=== PATIENT | male | born 1930 | race Caucasian/White ===

== ENCOUNTER 2017-09-07 02:35 | Emergency (ER) | payer MEDICARE, BC ==
[2017-09-07] MEDS ORDERED: Ketorolac 30 MG/ML SDV ONE (03:10)
[2017-09-07] MEDS ORDERED: Ketorolac 30 MG/ML SDV IVPUSH ONE (03:10)
[2017-09-07] MEDS ORDERED: Sodium Chloride 0.9% 1,000 ML ONE (03:10)
[2017-09-07] MEDS ORDERED: Ondansetron 4 MG/2 ML SDV ONE (03:10)
[2017-09-07] MEDS ORDERED: Ketorolac 30 MG/ML SDV IM ONE (03:12)
[2017-09-07] MEDS ORDERED: Sodium Chloride 0.9% 1,000 ML IV ONE (03:12)
[2017-09-07] MEDS ORDERED: Ondansetron 4 MG/2 ML SDV IVPUSH ONE (03:12)
--- NOTE | 2017-09-07 03:19 | EDM.PDOC ---
ED HPI GENERAL MEDICAL PROBLEM - General Chief Complaint: General Stated Complaint: flank pain Time Seen by Provider: 09/07/17 03:11 Source of Information: Reports: Patient History Limitations: Reports: No Limitations - History of Present Illness INITIAL COMMENTS - FREE TEXT/NARRATIVE: PATIENT IS AN 86-YEAR-OLD GENTLEMAN WHO PRESENTS TO THE EMERGENCY DEPARTMENT THIS MORNING WITH A COMPLAINT OF RIGHT FLANK AND RIGHT LOWER QUADRANT ABDOMINAL PAIN. PATIENT STATES PAIN BEGAN AT 2230 LAST NIGHT, HAS BEEN INTERMITTENT, DESCRIBED ACHY AND THEN STABBING. PATIENT FEELS NAUSEATED DURING THESE EPISODES BUT HAS NOT VOMITED. PATIENT STATES HE DOES HAVE A HISTORY OF RENAL CALCULI. PATIENT DENIES CHEST PAIN, SHORTNESS OF BREATH, FEVER, HEADACHE, LOW BACK PAIN, FALL, BLOOD IN URINE, BOWEL CHANGES, BLOOD IN STOOL, TESTICULAR PAIN OR DYSURIA. Onset Date: 09/06/17 Onset Time: 22:30 Duration: Hour(s): Location: Reports: Abdomen, Back Quality: Reports: Ache, Stabbing Severity: Moderate Improves with: Reports: None Worsens with: Reports: None Context: Denies: Trauma Associated Symptoms: Reports: Nausea/Vomiting - Related Data Allergies Allergy/AdvReac Type Severity Reaction Status Date / Time Penicillins Allergy Swelling Verified 09/07/17 03:48 Home Meds: Home Meds Metoprolol Tartrate [Metoprolol Tartrate] 12.5 mg PO BID 09/07/17 [History] PARoxetine [Paxil] 20 mg PO DAILY 09/07/17 [History] Tamsulosin HCl [Flomax] 0.4 mg PO DAILY #14 cap.er.24h 09/07/17 [Rx] Terazosin HCl [Terazosin] 2 mg PO DAILY 09/07/17 [History] amLODIPine [Norvasc] 7.5 mg PO DAILY 09/07/17 [History] ED ROS GENERAL - Review of Systems Review Of Systems: ROS reveals no pertinent complaints other than HPI. Constitutional: Reports: No Symptoms HEENT: Reports: No Symptoms Respiratory: Reports: No Symptoms Cardiovascular: Reports: No Symptoms Endocrine: Reports: No Symptoms GI/Abdominal: Reports: Abdominal Pain, Nausea. Denies: Bloody Stool, Constipation, Diarrhea, Vomiting : Reports: Flank Pain Musculoskeletal: Reports: No Symptoms Skin: Reports: No Symptoms Neurological: Reports: No Symptoms Psychiatric: Reports: No Symptoms Hematologic/Lymphatic: Reports: No Symptoms Immunologic: Reports: No Symptoms ED EXAM, GENERAL - Physical Exam Exam: See Below Exam Limited By: No Limitations General Appearance: Alert, WD/WN, No Apparent Distress Throat/Mouth: Normal Inspection, Normal Oropharynx, No Airway Compromise Head: Atraumatic, Normocephalic Neck: Normal Inspection Respiratory/Chest: No Respiratory Distress, Lungs Clear, Normal Breath Sounds, No Accessory Muscle Use, Chest Non-Tender Cardiovascular: Regular Rate, Rhythm, No Murmur GI/Abdominal: Normal Bowel Sounds, Soft, No Organomegaly, No Abnormal Bruit, No Mass, Tender (RLQ) Back Exam: CVA Tenderness (R). No: CVA Tenderness (L) Extremities: Normal Inspection, No Pedal Edema Neurological: Alert, Oriented, Normal Cognition Psychiatric: Normal Affect, Normal Mood Skin Exam: Warm, Dry, Intact, Normal Color, No Rash Course - Orders/Labs/Meds Orders: Active Orders 24 hr Category Date Time Status Abdomen Pelvis wo Cont [CT] Stat Exams 09/07/17 03:11 Ordered CBC WITH AUTO DIFF [HEME] Stat Lab 09/07/17 03:11 Ordered COMPREHENSIVE METABOLIC PN,CMP [CHEM] Stat Lab 09/07/17 03:11 Ordered UA W/MICROSCOPIC [URIN] Stat Lab 09/07/17 03:11 Ordered Ketorolac [Toradol] Med 09/07/17 03:12 Once 30 mg IM ONETIME ONE Ondansetron [Zofran] Med 09/07/17 03:12 Once 4 mg IVPUSH ONETIME ONE Sodium Chloride 0.9% @ 999 MLS/HR (1000ml) Med 09/07/17 03:12 Ordered Sodium Chloride 0.9% [Normal Saline] 1,000 ml IV .BOLUS - Radiology Interpretation Free Text/Narrative:: CT without contrast of abdomen and pelvis shows 4 mm calculus moderate right hydronephrosis. There is also a renal cortical cyst, right side measuring 8.5 cm. - Re-Assessments/Exams Free Text/Narrative Re-Assessment/Exam: 09/07/17 04:31 Patient afebrile, nontoxic appearing, vital signs stable, pain controlled. Daughter is at bedside and will be transporting the patient home. She will follow-up at [facility] in 1-2 days. Departure - Departure Time of Disposition: 04:36 Disposition: Home, Self-Care 01 Condition: Good Clinical Impression: Renal calculus, right, Kidney stones - Discharge Information Instructions: Renal Colic, [id number], Kidney Stones, [id number] Additional Instructions: Follow-up at [facility] in 1-2 days. Return to the emergency room sooner if symptoms continue or worsen. - My Orders Last 24 Hours: My Active Orders 09/07/17 03:11 Abdomen Pelvis wo Cont [CT] Stat CBC WITH AUTO DIFF [HEME] Stat COMPREHENSIVE METABOLIC PN,CMP [CHEM] Stat UA W/MICROSCOPIC [URIN] Stat 09/07/17 03:12 Ketorolac [Toradol] 30 mg IM ONETIME ONE Ondansetron [Zofran] 4 mg IVPUSH ONETIME ONE Sodium Chloride 0.9% @ 999 MLS/HR (1000ml) Sodium Chloride 0.9% [Normal Saline] 1,000 ml IV .BOLUS - Assessment/Plan Last 24 Hours: My Active Orders 09/07/17 03:11 Abdomen Pelvis wo Cont [CT] Stat CBC WITH AUTO DIFF [HEME] Stat COMPREHENSIVE METABOLIC PN,CMP [CHEM] Stat UA W/MICROSCOPIC [URIN] Stat 09/07/17 03:12 Ketorolac [Toradol] 30 mg IM ONETIME ONE Ondansetron [Zofran] 4 mg IVPUSH ONETIME ONE Sodium Chloride 0.9% @ 999 MLS/HR (1000ml) Sodium Chloride 0.9% [Normal Saline] 1,000 ml IV .BOLUS Assessment:: Renal calculi Plan: Follow-up with PCP in one to 2 days
[2017-09-07] MEDS ORDERED: HYDROmorphone 1 MG/ML Syringe IVPUSH ONE (03:55)
[2017-09-07] MEDS ORDERED: HYDROmorphone 1 MG/ML Syringe ONE (03:55)
== END 2017-09-07 04:45 | disposition home or self-care (01) ==
LOC: KA.ED 02:35
DX: N13.2 Hydronephrosis with renal and ureteral calculous obstruction (principal); Z88.0 Allergy status to penicillin; Z79.899 Other long term (current) drug therapy
CPT/HCPCS: 74176; 80053; 81001; 85025; 96361; 96372; 96374; 96375; 99284; J1170; J1885; J2405; J7030

== ENCOUNTER 2018-08-25 19:35 | Observation (INO) | payer MEDICARE, BC ==
[2018-08-25] MEDS ORDERED: Sodium Chloride 0.9% 10 ML Syringe FLUSH PRN ×2 (19:56)
--- NOTE | 2018-08-25 20:17 | EDM.PDOC ---
ED HPI GENERAL MEDICAL PROBLEM - General Chief Complaint: Chest Pain Stated Complaint: IRREGULAR HEART RATE Time Seen by Provider: 08/25/18 20:06 Source of Information: Reports: Patient History Limitations: Reports: No Limitations - History of Present Illness INITIAL COMMENTS - FREE TEXT/NARRATIVE: Patient is an 87-year-old gentleman who presents to the emergency department this evening with a complaint of heart palpitations. Patient's states that shortly after dinner and having a glass of beer, approximately 1830 tonight He felt fluttering in his chest. Patient states that he did not feel any chest pain, shortness of breath, nausea, vomiting, day, or pain radiation. Patient is currently on metoprolol and a request for atrial fibrillation. This diagnosis was made several months ago. Onset: Today Onset Date: 08/25/18 Onset Time: 18:30 Duration: Hour(s): Location: Reports: Chest Quality: Reports: Other (No pain, just palpation) Severity: Mild Improves with: Reports: None Worsens with: Reports: None Context: Reports: Other (While at rest). Denies: Activity, Trauma Associated Symptoms: Reports: No Other Symptoms - Related Data Allergies Allergy/AdvReac Type Severity Reaction Status Date / Time Penicillins Allergy Swelling Verified 08/25/18 19:54 Home Meds: Home Meds Metoprolol Tartrate 12.5 mg PO BID 09/07/17 [History] PARoxetine [Paxil] 20 mg PO DAILY 09/07/17 [History] Tamsulosin HCl [Flomax] 0.4 mg PO DAILY #14 cap.er.24h 09/07/17 [Rx] Terazosin HCl [Terazosin] 2 mg PO DAILY 09/07/17 [History] amLODIPine [Norvasc] 7.5 mg PO DAILY 09/07/17 [History] Past Medical History Cardiovascular History: Reports: Bypass, Hypertension Genitourinary History: Reports: Renal Calculus Psychiatric History: Reports: Anxiety - Past Surgical History Cardiovascular Surgical History: Reports: Coronary Artery Bypass GI Surgical History: Reports: Cholecystectomy Male Surgical History: Reports: None Musculoskeletal Surgical History: Reports: Other (See Below) Other Musculoskeletal Surgeries/Procedures:: Back surgery ED ROS GENERAL - Review of Systems Review Of Systems: ROS reveals no pertinent complaints other than HPI. Constitutional: Reports: No Symptoms HEENT: Reports: No Symptoms Respiratory: Reports: No Symptoms Cardiovascular: Reports: Palpitations Endocrine: Reports: No Symptoms GI/Abdominal: Reports: No Symptoms : Reports: No Symptoms Musculoskeletal: Reports: No Symptoms Skin: Reports: No Symptoms Neurological: Reports: No Symptoms Psychiatric: Reports: No Symptoms Hematologic/Lymphatic: Reports: No Symptoms Immunologic: Reports: No Symptoms ED EXAM, GENERAL - Physical Exam Exam: See Below Exam Limited By: No Limitations General Appearance: Alert, WD/WN, No Apparent Distress Nose: Normal Inspection Throat/Mouth: Normal Inspection, Normal Oropharynx, No Airway Compromise Head: Atraumatic, Normocephalic Neck: Normal Inspection Respiratory/Chest: No Respiratory Distress, Lungs Clear, Normal Breath Sounds, No Accessory Muscle Use, Chest Non-Tender Cardiovascular: Irregularly Irregular Peripheral Pulses: 2+: Brachial (L), Brachial (R), Femoral (L), Femoral (R) GI/Abdominal: Normal Bowel Sounds, Soft, Non-Tender, No Abnormal Bruit Back Exam: Normal Inspection. No: CVA Tenderness (L), CVA Tenderness (R) Extremities: Pedal Edema (1+ bilateral pedal edema) Neurological: Alert, Oriented, CN II-XII Intact, Normal Cognition, No Motor/ Sensory Deficits Psychiatric: Normal Affect, Normal Mood Skin Exam: Warm, Dry, Intact, Normal Color, No Rash Lymphatic: No Adenopathy EKG INTERPRETATION EKG Date: 08/25/18 Time: 19:50 Rhythm: A-Fib Rate (Beats/Min): 86 [place]: Normal P-Wave: Variable QRS: Normal ST-T: Normal QT: Normal Comparison: NA - No Prior EKG Course - Vital Signs Last Recorded V/S: Last Vital Signs Temp 98.3 F 08/25/18 19:45 Pulse 89 08/25/18 19:45 Resp 20 08/25/18 19:45 BP 148/76 H 08/25/18 19:45 Pulse Ox 95 08/25/18 19:45 - Orders/Labs/Meds Orders: Active Orders 24 hr Category Date Time Status EKG Documentation Completion [RC] ASDIRECTED Care 08/25/18 19:58 Active Peripheral IV Care [RC] . DIRECTED Care 08/25/18 19:58 Active Chest 1V Frontal [CR] Stat Exams 08/25/18 19:56 Ordered Sodium Chloride 0.9% [Saline Flush] Med 08/25/18 19:56 Active 10 ml FLUSH ASDIRECTED PRN Sodium Chloride 0.9% [Saline Flush] Med 08/25/18 19:56 Active 10 ml FLUSH Q8HR PRN Peripheral IV Insertion Adult [OM.PC] Stat Oth 08/25/18 19:56 Ordered EKG 12 Lead [EK] Stat Ther 08/25/18 19:56 Ordered Medication Orders Sodium Chloride (Saline Flush) 10 ml FLUSH ASDIRECTED PRN PRN Reason: Keep Vein Open Sodium Chloride (Saline Flush) 10 ml FLUSH Q8HR PRN PRN Reason: keep vein open Labs: Laboratory Tests 08/25/18 08/25/18 08/25/18 Range/Units 19:50 19:50 19:50 WBC 7.06 (5.00-10.00) 10^3/uL RBC 4.27 L (4.50-6.00) 10^6/uL Hgb 13.2 (13.0-17.0) g/dL Hct 39.3 L (40.0-52.0) % MCV 92.0 (82.0-92.0) fL MCH 30.9 (27.0-31.0) pg MCHC 33.6 (32.0-36.0) g/dL RDW 12.8 (11.5-14.5) % Plt Count 230 (150-400) 10^3/uL MPV 10.3 (7.4-10.4) fL Immature Gran % (Auto) 0.0 (0.0-5.0) % Neut % (Auto) 56.2 (50.0-70.0) % Lymph % (Auto) 31.3 (20.0-40.0) % Benson % (Auto) 10.1 H (2.0-8.0) % Eos % (Auto) 2.0 (1.0-3.0) % Baso % (Auto) 0.4 (0.0-1.0) % Immature Gran # (Auto) 0.00 (0.00-0.50) 10^3/uL Neut # (Auto) 3.97 (2.50-7.00) 10^3/uL Lymph # (Auto) 2.21 (1.00-4.00) 10^3/uL Benson # (Auto) 0.71 (0.10-0.80) 10^3/uL Eos # (Auto) 0.14 (0.10-0.30) 10^3/uL Baso # (Auto) 0.03 (0.00-0.10) 10^3/uL PT 10.4 (8.9-11.4) SEC INR 1.0 (0.9-1.1) Sodium 147 H (136-145) mmol/L Potassium 4.0 (3.3-5.3) mmol/L Chloride 105 (98-115) mmol/L Carbon Dioxide 23.2 (21.0-32.0) mmol/L Anion Gap 22.8 H (5-15) mmol/L BUN 21 (6-25) mg/dL Creatinine 0.99 (0.51-1.17) mg/dL Est Cr Clr Drug Dosing 50.86 mL/min Estimated GFR (MDRD) > 60 mL/min Glucose 134 H (75 - 99) mg/dL Calcium 8.3 L (8.7-10.3) mg/dL Total Bilirubin 0.3 (0.2-1.0) mg/dL AST 23 (15-37) U/L ALT 37 (12-78) U/L Alkaline Phosphatase 80 (46-116) IU/L Troponin I 0.05 (0.00-0.070) ng/mL B-Natriuretic Peptide (0-100) pg/mL Total Protein 7.1 (6.4-8.2) g/dL Albumin 3.51 (3.00-4.80) g/dL 08/25/18 Range/Units 19:50 WBC (5.00-10.00) 10^3/uL RBC (4.50-6.00) 10^6/uL Hgb (13.0-17.0) g/dL Hct (40.0-52.0) % MCV (82.0-92.0) fL MCH (27.0-31.0) pg MCHC (32.0-36.0) g/dL RDW (11.5-14.5) % Plt Count (150-400) 10^3/uL MPV (7.4-10.4) fL Immature Gran % (Auto) (0.0-5.0) % Neut % (Auto) (50.0-70.0) % Lymph % (Auto) (20.0-40.0) % Benson % (Auto) (2.0-8.0) % Eos % (Auto) (1.0-3.0) % Baso % (Auto) (0.0-1.0) % Immature Gran # (Auto) (0.00-0.50) 10^3/uL Neut # (Auto) (2.50-7.00) 10^3/uL Lymph # (Auto) (1.00-4.00) 10^3/uL Benson # (Auto) (0.10-0.80) 10^3/uL Eos # (Auto) (0.10-0.30) 10^3/uL Baso # (Auto) (0.00-0.10) 10^3/uL PT (8.9-11.4) SEC INR (0.9-1.1) Sodium (136-145) mmol/L Potassium (3.3-5.3) mmol/L Chloride (98-115) mmol/L Carbon Dioxide (21.0-32.0) mmol/L Anion Gap (5-15) mmol/L BUN (6-25) mg/dL Creatinine (0.51-1.17) mg/dL Est Cr Clr Drug Dosing mL/min Estimated GFR (MDRD) mL/min Glucose (75 - 99) mg/dL Calcium (8.7-10.3) mg/dL Total Bilirubin (0.2-1.0) mg/dL AST (15-37) U/L ALT (12-78) U/L Alkaline Phosphatase (46-116) IU/L Troponin I (0.00-0.070) ng/mL B-Natriuretic Peptide 340 H (0-100) pg/mL Total Protein (6.4-8.2) g/dL Albumin (3.00-4.80) g/dL Meds: Medications Generic Name Dose Route Start Last Admin Trade Name Freq PRN Reason Stop Dose Admin Sodium Chloride 10 ml 08/25/18 19:56 Saline Flush FLUSH ASDIRECTED PRN Keep Vein Open Sodium Chloride 10 ml 08/25/18 19:56 Saline Flush FLUSH Q8HR PRN keep vein open - Radiology Interpretation Free Text/Narrative:: Chest x-ray shows mild perihilar congestion without any infiltrates - Re-Assessments/Exams Free Text/Narrative Re-Assessment/Exam: 08/25/18 21:12 Patient afebrile, vital signs stable, heart rate 80s, BP 130s over 60s. Patient denies any chest pain or shortness of breath. Discussed case with Tang Hernandez from [facility] and patient will be admitted for observation and followed. Departure - Departure Time of Disposition: 21:16 Disposition: Refer to Observation Condition: Fair Clinical Impression: Atrial fibrillation Qualifiers: Atrial fibrillation type: unspecified Qualified Code(s): I48.91 - Unspecified atrial fibrillation Instructions: Atrial Fibrillation, [id number] Referrals: Mary Rouse MD [Primary Care Provider] - Forms: ED Department Discharge - My Orders Last 24 Hours: My Active Orders 08/25/18 19:56 Chest 1V Frontal [CR] Stat Sodium Chloride 0.9% [Saline Flush] 10 ml FLUSH ASDIRECTED PRN Sodium Chloride 0.9% [Saline Flush] 10 ml FLUSH Q8HR PRN Peripheral IV Insertion Adult [OM.PC] Stat EKG 12 Lead [EK] Stat 08/25/18 19:58 EKG Documentation Completion [RC] ASDIRECTED Peripheral IV Care [RC] . DIRECTED - Assessment/Plan Last 24 Hours: My Active Orders 08/25/18 19:56 Chest 1V Frontal [CR] Stat Sodium Chloride 0.9% [Saline Flush] 10 ml FLUSH ASDIRECTED PRN Sodium Chloride 0.9% [Saline Flush] 10 ml FLUSH Q8HR PRN Peripheral IV Insertion Adult [OM.PC] Stat EKG 12 Lead [EK] Stat 08/25/18 19:58 EKG Documentation Completion [RC] ASDIRECTED Peripheral IV Care [RC] . DIRECTED Assessment:: Atrial fibrillation Plan: Admit to observation
[2018-08-25 20:39] LABS: ANION GAP 22.8 mmol/L (5-15); CHLORIDE,CL 105 mmol/L (98-115); SODIUM,NA 147 mmol/L (136-145)
[2018-08-25] MEDS ORDERED: LORazepam 0.5 MG Tab PO ONE (22:06)
--- NOTE | 2018-08-25 22:49 | CR ---
[id number] RAD/RAD Chest PA or AP 1V EXAM: FRONTAL CHEST INDICATION: Chest flutter. COMPARISON: None. DISCUSSION: There is cardiomegaly. Mild enlargement of the central pulmonary arteries without evidence of current vascular congestion. Prior sternotomy. No acute infiltrates. IMPRESSION: 1. No acute findings. Yousuf Hilliard MD 08/25/18 [id number] Thank you for allowing us to participate in the care of your patient.
[2018-08-26] MEDS ORDERED: Melatonin 3 MG Tab ONE (00:21)
[2018-08-26] MEDS: Melatonin 3 MG Tab PO SCH ×2 (00:23→21:03)
--- NOTE | 2018-08-26 09:20 | PCM.HP ---
H&P History of Present Illness - General Date of Service: 08/26/18 Admit Problem/Dx: Admission Diagnosis/Problem Admission Diagnosis/Problem Atrial fibrillation - Related Data Allergies/Adverse Reactions: Allergies Allergy/AdvReac Type Severity Reaction Status Date / Time Penicillins Allergy Swelling Verified 08/26/18 05:20 Home Medications: Home Meds Metoprolol Tartrate 12.5 mg PO BID 09/07/17 [History] Terazosin HCl [Terazosin] 2 mg PO BEDTIME 09/07/17 [History] Apixaban [Eliquis] 5 mg PO BID 08/25/18 [History] Aspirin [Halfprin] 81 mg PO BEDTIME 08/25/18 [History] LORazepam 0.25 - 0.5 mg PO DAILY PRN 08/25/18 [History] Lisinopril 5 mg PO DAILY 08/25/18 [History] Simvastatin 20 mg PO BEDTIME 08/25/18 [History] Ubidecarenone [Co Q-10] 100 mg PO DAILY 08/25/18 [History] amLODIPine Besylate [Amlodipine Besylate] 5 mg PO DAILY 08/25/18 [History] Acetaminophen 650 mg PO Q6H PRN 08/26/18 [History] Melatonin 10 mg PO BEDTIME 08/26/18 [History] PARoxetine HCl [Paroxetine HCl] 20 mg PO DAILY 08/26/18 [History] Past Medical History Cardiovascular History: Reports: Bypass, Hypertension, Other (See Below) Other Cardiovascular History: in 2010 Genitourinary History: Reports: Renal Calculus Psychiatric History: Reports: Anxiety - Past Surgical History Cardiovascular Surgical History: Reports: Coronary Artery Bypass GI Surgical History: Reports: Cholecystectomy Male Surgical History: Reports: None Neurological Surgical History: Reports: None Musculoskeletal Surgical History: Reports: Other (See Below) Other Musculoskeletal Surgeries/Procedures:: Back surgery Social & Family History - Family History HEENT: Reports: None Cardiac: Reports: Other (See Below) (Father of heart disease) Respiratory: Reports: Other (See Below) (Mother had lung cancer) GI: Reports: None : Reports: None OBGYN: Reports: None Musculoskeletal: Reports: None Neurological: Reports: None Psychiatric: Reports: None Endocrine/Metabolic: Reports: None Hematologic: Reports: None Dermatologic: Reports: None Oncologic: Reports: Other (See Below) (Sr. alive unknown cancer) H&P Review of Systems - Review of Systems: Review Of Systems: See Below HEENT: Reports: No Symptoms Pulmonary: Reports: No Symptoms Cardiovascular: Reports: No Symptoms Gastrointestinal: Reports: No Symptoms Genitourinary: Reports: No Symptoms Musculoskeletal: Reports: No Symptoms Skin: Reports: No Symptoms Psychiatric: Reports: No Symptoms Neurological: Reports: No Symptoms Hematologic/Lymphatic: Reports: Easy Bleeding, Easy Bruising Immunologic: Reports: No Symptoms Exam - Exam Exam: See Below - Vital Signs Vital Signs: Last Vital Signs Temp 98.5 F 08/26/18 06:32 Pulse 82 08/26/18 06:32 Resp 16 08/26/18 06:32 BP 140/72 08/26/18 06:32 Pulse Ox 97 08/26/18 06:32 Weight: 184 lb 8 oz - Exam Quality Assessment: Supplemental Oxygen General: Alert, Oriented, 4 HEENT: Mucosa Moist & [place] Neck: Supple, Trachea Midline, 2 Lungs: Clear to Auscultation, Normal Respiratory Effort Cardiovascular: Irregular Rhythm. No: Tachycardia, Diastolic Murmur, Gallop/S3 GI/Abdominal Exam: Normal Bowel Sounds, Soft, Non-Tender, No Distention, No Abnormal Bruit, No Mass (Male) Exam: Deferred Rectal (Males) Exam: Deferred Back Exam: No: CVA Tenderness (L), CVA Tenderness (R) Extremities: Non-Tender, No Pedal Edema Peripheral Pulses: 1+: Carotid (L), Carotid (R) Skin: Warm, Dry, Intact Neurological: Cranial Nerves Intact, Reflexes Equal Bilateral Neuro Extensive - Mental Status: Alert, Oriented x3, Normal Mood/Affect, Normal Cognition Neuro Extensive - Motor, Sensory, Reflexes: CN II-XII Intact, Normal Gait, Normal Reflexes Psychiatric: Alert, Normal Affect, Normal Mood. No: Anxious - Patient Data Lab Results Last 24 hrs: Laboratory Results - last 24 hr 08/25/18 08/25/18 08/25/18 Range/Units 19:50 19:50 19:50 WBC 7.06 (5.00-10.00) 10^3/uL RBC 4.27 L (4.50-6.00) 10^6/uL Hgb 13.2 (13.0-17.0) g/dL Hct 39.3 L (40.0-52.0) % MCV 92.0 (82.0-92.0) fL MCH 30.9 (27.0-31.0) pg MCHC 33.6 (32.0-36.0) g/dL RDW 12.8 (11.5-14.5) % Plt Count 230 (150-400) 10^3/uL MPV 10.3 (7.4-10.4) fL Immature Gran % (Auto) 0.0 (0.0-5.0) % Neut % (Auto) 56.2 (50.0-70.0) % Lymph % (Auto) 31.3 (20.0-40.0) % Wise % (Auto) 10.1 H (2.0-8.0) % Eos % (Auto) 2.0 (1.0-3.0) % Baso % (Auto) 0.4 (0.0-1.0) % Immature Gran # (Auto) 0.00 (0.00-0.50) 10^3/uL Neut # (Auto) 3.97 (2.50-7.00) 10^3/uL Lymph # (Auto) 2.21 (1.00-4.00) 10^3/uL Wise # (Auto) 0.71 (0.10-0.80) 10^3/uL Eos # (Auto) 0.14 (0.10-0.30) 10^3/uL Baso # (Auto) 0.03 (0.00-0.10) 10^3/uL PT 10.4 (8.9-11.4) SEC INR 1.0 (0.9-1.1) Sodium 147 H (136-145) mmol/L Potassium 4.0 (3.3-5.3) mmol/L Chloride 105 (98-115) mmol/L Carbon Dioxide 23.2 (21.0-32.0) mmol/L Anion Gap 22.8 H (5-15) mmol/L BUN 21 (6-25) mg/dL Creatinine 0.99 (0.51-1.17) mg/dL Est Cr Clr Drug Dosing 50.86 mL/min Estimated GFR (MDRD) > 60 mL/min Glucose 134 H (75 - 99) mg/dL Calcium 8.3 L (8.7-10.3) mg/dL Total Bilirubin 0.3 (0.2-1.0) mg/dL AST 23 (15-37) U/L ALT 37 (12-78) U/L Alkaline Phosphatase 80 (46-116) IU/L Troponin I 0.05 (0.00-0.070) ng/mL B-Natriuretic Peptide (0-100) pg/mL Total Protein 7.1 (6.4-8.2) g/dL Albumin 3.51 (3.00-4.80) g/dL 08/25/18 Range/Units 19:50 WBC (5.00-10.00) 10^3/uL RBC (4.50-6.00) 10^6/uL Hgb (13.0-17.0) g/dL Hct (40.0-52.0) % MCV (82.0-92.0) fL MCH (27.0-31.0) pg MCHC (32.0-36.0) g/dL RDW (11.5-14.5) % Plt Count (150-400) 10^3/uL MPV (7.4-10.4) fL Immature Gran % (Auto) (0.0-5.0) % Neut % (Auto) (50.0-70.0) % Lymph % (Auto) (20.0-40.0) % Wise % (Auto) (2.0-8.0) % Eos % (Auto) (1.0-3.0) % Baso % (Auto) (0.0-1.0) % Immature Gran # (Auto) (0.00-0.50) 10^3/uL Neut # (Auto) (2.50-7.00) 10^3/uL Lymph # (Auto) (1.00-4.00) 10^3/uL Wise # (Auto) (0.10-0.80) 10^3/uL Eos # (Auto) (0.10-0.30) 10^3/uL Baso # (Auto) (0.00-0.10) 10^3/uL PT (8.9-11.4) SEC INR (0.9-1.1) Sodium (136-145) mmol/L Potassium (3.3-5.3) mmol/L Chloride (98-115) mmol/L Carbon Dioxide (21.0-32.0) mmol/L Anion Gap (5-15) mmol/L BUN (6-25) mg/dL Creatinine (0.51-1.17) mg/dL Est Cr Clr Drug Dosing mL/min Estimated GFR (MDRD) mL/min Glucose (75 - 99) mg/dL Calcium (8.7-10.3) mg/dL Total Bilirubin (0.2-1.0) mg/dL AST (15-37) U/L ALT (12-78) U/L Alkaline Phosphatase (46-116) IU/L Troponin I (0.00-0.070) ng/mL B-Natriuretic Peptide 340 H (0-100) pg/mL Total Protein (6.4-8.2) g/dL Albumin (3.00-4.80) g/dL Result Diagrams: 08/25/18 19:50 08/25/18 19:50 Problem List Initiated/Reviewed/Updated: Yes Orders Last 24hrs: Active Orders 24 hr Category Date Time Status Patient Status [ADT] Routine ADT 08/25/18 21:17 Ordered EKG Documentation Completion [RC] ASDIRECTED Care 08/25/18 19:58 Active Oxygen Therapy [RC] PRN Care 08/25/18 21:17 Active Peripheral IV Care [RC] . DIRECTED Care 08/25/18 19:58 Active Telemetry Monitoring [Cardiac Monitoring] [RC] 0700, Care 08/25/18 22:09 Active 1100,1500,1900,2300,0300 Up With Assistance [RC] DAILY Care 08/25/18 22:07 Active Vital Signs [RC] 0700,1100,1500,1900,2300,0300 Care 08/25/18 21:17 Active Heart Healthy Diet [DIET] Diet 08/26/18 Breakfast Active Melatonin Med 08/26/18 21:00 Active 9 mg PO BEDTIME Sodium Chloride 0.9% [Saline Flush] Med 08/25/18 19:56 Active 10 ml FLUSH ASDIRECTED PRN Sodium Chloride 0.9% [Saline Flush] Med 08/25/18 19:56 Active 10 ml FLUSH Q8HR PRN Peripheral IV Insertion Adult [OM.PC] Stat Oth 08/25/18 19:56 Ordered Resuscitation Status Routine Resus Stat 08/25/18 21:17 Ordered EKG 12 Lead [EK] Stat Ther 08/25/18 19:56 Ordered Medication Orders Melatonin (Melatonin) 9 mg PO BEDTIME CARMINE Last Admin: 08/26/18 00:23 Dose: 9 mg Sodium Chloride (Saline Flush) 10 ml FLUSH ASDIRECTED PRN PRN Reason: Keep Vein Open Sodium Chloride (Saline Flush) 10 ml FLUSH Q8HR PRN PRN Reason: keep vein open Last Admin: 08/26/18 06:16 Dose: 10 ml Assessment/Plan Comment:: History of present illness Jeancarlos is an 87-year-old gentleman that was admitted into observation before midnight last night when he came through the ED due to chest palpitations. He was at home had just drank 1 beer and then ate supper fluttering/chest palpitations chest, seem to be worse upon lying down. He had similar symptoms when he was first diagnosed with atrial fibrillation less than 1 year ago. He had no chest pain no nausea vomiting, no diaphoresis. He is on factor X A inhibitor for atrial fibrillation along with beta jose g for rate control. Does have a history of failed stress test with subsequent CABG with 3 vessel disease bypass ever no history of NE. Patient is quite active works out almost daily a local gym including weightlifting and treadmill without shortness of breath, chest pain, palpitations or claudication. In discussion with patient this morning in detail, patient does admit to stressful situation regarding spouse currently admitted in [facility] possible likely inducing his symptoms of chest palpitation. In review of his echocardiogram October 2017 EF 60% , mild to moderate dilated left atrium Pertinent ED findings EKG, atrial fibrillation, rate 80s, competing junctional pacemaker Troponin normal, Chest x-ray no acute findings, cardiomegaly BNP 340 Primary hospital problems Atrial fibrillation, chronic, persistent, CVR, [id number] 4, factor Xa, Loressor rate control. Overweight, contributable, co-morbid Secondary problems HFpEF, diastolic, beta jose g and vanessa inhibition HTN, essential, Lopressor, lisinopril, amlodipine HLD, on low-dose simvastatin however due to risk profile will discuss increasing to moderate dosing CAD, no ischemic picture, ASA Esophageal reflux BPH, cont with Terazosin Depression, situational anxiety, Paxil, when necessary lorazepam Heart healthy diet full code, telemetry meds Catherine, daughter present on rounds today Disposition/overall plan, continue observation today with telemetry, TSH, Lasix 20 mg 1 today, ambulate on halls, monitor telemetry closely. Likely stress-induced, long discussion with patient and family regarding home low-dose lorazepam for situational stress and anxiety. Anticipate discharge in a.m.
[2018-08-26] MEDS ORDERED: LORazepam 0.5 MG Tab PO PRN (09:25)
[2018-08-26] MEDS ORDERED: Non-Formulary Medication 1 Each (Ubidecarenone [Co Q-10] 100 MG) PO SCH (09:30)
[2018-08-26] MEDS ORDERED: Lidocaine 2% 100 MG/5 ML Syringe IVPUSH PRN (10:09)
[2018-08-26] MEDS ORDERED: Nitroglycerin 0.4 MG Tab.SL SL PRN (10:09)
[2018-08-26] MEDS ORDERED: Atropine 0.1 MG/ML 10 ML Syringe IVPUSH PRN (10:09)
[2018-08-26] MEDS ORDERED: EPINEPHrine 1:10,000 1 MG/10 ML Syringe IVPUSH PRN (10:09)
[2018-08-26] MEDS: Apixaban 5 MG Tab PO SCH ×2 (10:30→21:03)
[2018-08-26] MEDS: Metoprolol Tartrate 25 MG Tab PO SCH ×2 (10:30→21:02)
[2018-08-26] MEDS: amLODIPine 5 MG Tab PO SCH (10:30)
[2018-08-26] MEDS: Lisinopril 5 MG Tab PO SCH (10:31)
[2018-08-26] MEDS: PARoxetine 20 MG Tab PO SCH (10:31)
[2018-08-26] MEDS ORDERED: Furosemide 20 MG Tab PO SCH ×2 (12:00→15:30)
[2018-08-26] MEDS ORDERED: Melatonin 3 MG Tab PO SCH (21:00)
[2018-08-26] MEDS ORDERED: Aspirin 81 MG Tab.EC PO SCH (21:00)
[2018-08-26] MEDS ORDERED: Simvastatin 20 MG Tab PO SCH (21:00)
[2018-08-26] MEDS ORDERED: Terazosin 1 MG Cap PO SCH (21:00)
[2018-08-27] MEDS: Apixaban 5 MG Tab PO SCH (09:35)
[2018-08-27] MEDS: Metoprolol Tartrate 25 MG Tab PO SCH (09:35)
[2018-08-27] MEDS: amLODIPine 5 MG Tab PO SCH (09:37)
[2018-08-27] MEDS: PARoxetine 20 MG Tab PO SCH (09:37)
[2018-08-27] MEDS: Lisinopril 5 MG Tab PO SCH (09:37)
[2018-08-27] MEDS ORDERED: Furosemide 20 MG Tab PO ONE (09:45)
--- NOTE | 2018-08-27 10:04 | PCM.DCSUM1 ---
Discharge Summary - Hospital Course Diagnosis: Stroke: No - Discharge Data Discharge Date: 08/27/18 Discharge Disposition: Home, Self-Care 01 Condition: Good - Patient Instructions Diet: Usual Diet as Tolerated Driving: May Drive Today Showering/Bathing: May Shower Notify Provider of: Increased Pain Other/Special Instructions: --Report any chest pain or chest palpitations. Report any dizziness. --Take your last water pill Wednesday. --I will see you back in the clinic next week [id number] for appointment - Discharge Plan *PRESCRIPTION DRUG MONITORING PROGRAM REVIEWED*: Not Applicable *COPY OF PRESCRIPTION DRUG MONITORING REPORT IN PATIENT CONNOR: Not Applicable Prescriptions/Med Rec: LORazepam 0.25 - 0.5 mg PO DAILY PRN #20 tablet PRN Reason: Anxiety Home Medications: Home Meds Metoprolol Tartrate 12.5 mg PO BID 09/07/17 [History] Terazosin HCl [Terazosin] 2 mg PO BEDTIME 09/07/17 [History] Apixaban [Eliquis] 5 mg PO BID 08/25/18 [History] Aspirin [Halfprin] 81 mg PO BEDTIME 08/25/18 [History] Lisinopril 5 mg PO DAILY 08/25/18 [History] Simvastatin 20 mg PO BEDTIME 08/25/18 [History] Ubidecarenone [Co Q-10] 100 mg PO DAILY 08/25/18 [History] amLODIPine Besylate [Amlodipine Besylate] 5 mg PO DAILY 08/25/18 [History] Acetaminophen 650 mg PO Q6H PRN 08/26/18 [History] Melatonin 10 mg PO BEDTIME 08/26/18 [History] PARoxetine HCl [Paroxetine HCl] 20 mg PO DAILY 08/26/18 [History] LORazepam 0.25 - 0.5 mg PO DAILY PRN #20 tablet 08/27/18 [Rx] - Discharge Summary/Plan Comment DC Time >30 min.: No Discharge Summary/Plan Comment: Final diagnosis Atrial fibrillation, chronic, persistent HFpEF, diastolic. Overweight HTN HLD CAD, Esophageal reflux BPH History summary 87-year-old gentleman that was admitted into observation due to chest palpitations. He was admitted to observation on telemetry through the emergency department. He was at home had just drank 1 beer and then ate supper fluttering/ chest palpitations chest, seem to be worse upon lying down. He had similar symptoms when he was first diagnosed with atrial fibrillation less than 1 year ago. He had no chest pain no nausea vomiting, no diaphoresis. He is on factor X A inhibitor for atrial fibrillation along with beta jose g for rate control. Does have a history of failed stress test with subsequent CABG with 3 vessel disease bypass ever no history of VT. Patient is quite active works out almost daily a local gym including weightlifting and treadmill without shortness of breath, chest pain, palpitations or claudication. Pertinent ED findings EKG, atrial fibrillation, rate 80s, competing junctional pacemaker Troponin normal, Chest x-ray no acute findings, cardiomegaly BNP 340 Hospital course Quite uneventful, remained on telemetry all strips were reviewed without any concerns or abnormality. He never had chest pain or chest palpitations. Was given one dose 20 mg Lasix in which he lost 4 pounds of fluid, he stated he felt much better after losing fluid. Is ambulated on the floor aggressively without any symptom burden. Appears patient did have quite stressful event at home with spouse hospitalization which may have caused him to have some chest palpitations and increased anxiety. Does have a prescription home for lorazepam however he states he never takes status. One dose of lorazepam was given to him and he felt much better. He did have a slightly elevated BNP of 340 upon admission. Electrolytes were monitored. No signs of infection. He had no side effects or adverse reactions to any treatments or medications. Family was quite supportive throughout short hospital stay. Medication changes/adjustments upon discharge Lasix 20 mg by mouth last dose tomorrow Continue on all other home meds, encourage lorazepam when necessary upon any anticipated situational anxiety Disposition Patient will be discharged from observation to home. I will see him back next week. He was given written instructions regarding signs and symptoms of chest pain dizziness or any further concerns. Patient and family were on rounds this morning and agree with plan of care. - Patient Data Vitals - Most Recent: Last Vital Signs Temp 97.0 F 08/27/18 06:36 Pulse 62 08/27/18 09:35 Resp 16 08/27/18 06:36 BP 111/64 08/27/18 09:37 Pulse Ox 96 08/27/18 06:36 Weight - Most Recent: 180 lb 4 oz I&O - Last 24 hours: Intake & Output 08/26/18 08/27/18 08/27/18 22:59 06:59 14:59 Intake Total 650 0 Balance 650 0 Lab Results - Last 24 hrs: Laboratory Results - last 24 hr 08/26/18 Range/Units 11:00 Magnesium 1.9 (1.8-2.4) mg/dL TSH, Ultra Sensitive 2.600 (0.340-4.820) uIU/mL Med Orders - Current: Current Medications Amlodipine Besylate (Norvasc) 5 mg PO DAILY [facility] Last Admin: 08/27/18 09:37 Dose: 5 mg Apixaban (Eliquis) 5 mg PO BID [facility] Last Admin: 08/27/18 09:35 Dose: 5 mg Aspirin (Halfprin) 81 mg PO BEDTIME [facility] Last Admin: 08/26/18 21:03 Dose: 81 mg Atropine Sulfate (Atropine 0.1 Mg/Ml) 0 mg IVPUSH ASDIRECTED PRN PRN Reason: Heart Epinephrine HCl (Epinephrine 1:10,000) 1 mg IVPUSH ASDIRECTED PRN PRN Reason: Heart Furosemide (Lasix) 20 mg PO ONETIME ONE Stop: 08/27/18 09:46 Furosemide (Lasix) 20 mg PO ONETIME ONE Stop: 08/28/18 09:46 Lidocaine HCl (Xylocaine 2%) 0 mg IVPUSH ASDIRECTED PRN PRN Reason: Heart Lisinopril (Prinivil) 5 mg PO DAILY [facility] Last Admin: 08/27/18 09:37 Dose: 5 mg Lorazepam (Ativan) 0.5 mg PO DAILY PRN PRN Reason: Anxiety Last Admin: 08/26/18 21:02 Dose: 0.5 mg Melatonin (Melatonin) 9 mg PO BEDTIME [facility] Last Admin: 08/26/18 21:03 Dose: 9 mg Metoprolol Tartrate (Lopressor) 12.5 mg PO BID [facility] Last Admin: 08/27/18 09:35 Dose: 12.5 mg Nitroglycerin (Nitrostat) 0.4 mg SL ASDIRECTED PRN PRN Reason: Heart Paroxetine HCl (Paxil) 20 mg PO DAILY [facility] Last Admin: 08/27/18 09:37 Dose: 20 mg Simvastatin (Zocor) 20 mg PO BEDTIME [facility] Last Admin: 08/26/18 21:02 Dose: 20 mg Sodium Chloride (Saline Flush) 10 ml FLUSH Q8HR PRN PRN Reason: keep vein open Last Admin: 08/26/18 06:16 Dose: 10 ml Terazosin HCl (Hytrin) 2 mg PO BEDTIME [facility] Last Admin: 08/26/18 21:02 Dose: 2 mg Discontinued Medications Furosemide (Lasix) 20 mg PO ONETIME CARMINE Stop: 08/26/18 13:00 Furosemide (Lasix) 20 mg PO ONETIME CARMINE Stop: 08/26/18 16:30 Last Admin: 08/26/18 15:23 Dose: 20 mg Lorazepam (Ativan) 0.5 mg PO ONETIME ONE Stop: 08/25/18 22:07 Last Admin: 08/25/18 22:37 Dose: 0.5 mg Melatonin (Melatonin) Confirm Administered Dose 9 mg .ROUTE .STK-MED ONE Stop: 08/26/18 00:22 Last Admin: 08/26/18 00:24 Dose: Not Given
[2018-08-28] MEDS ORDERED: Furosemide 20 MG Tab PO ONE (09:45)
== END 2018-08-27 10:45 | disposition home or self-care (01) ==
LOC: KA.ED 19:35 → KA.MS 21:17
PROVIDERS: ADMIT Physician Assistant Surgical; ATTEND Family Medicine
DX: I48.2 Chronic atrial fibrillation (principal); I48.1 Persistent atrial fibrillation; I11.0 Hypertensive heart disease with heart failure; I50.30 Unspecified diastolic (congestive) heart failure; E78.5 Hyperlipidemia, unspecified; K21.9 Gastro-esophageal reflux disease without esophagitis; N40.0 Benign prostatic hyperplasia without lower urinary tract symptoms; E66.3 Overweight; Z68.27 Body mass index [BMI] 27.0-27.9, adult; Z79.82 Long term (current) use of aspirin; Z79.01 Long term (current) use of anticoagulants; Z79.899 Other long term (current) drug therapy; Z95.1 Presence of aortocoronary bypass graft
CPT/HCPCS: 36415; 71045; 80053; 83735; 83880; 84443; 84484; 85025; 85610; 93005; 99285; A9270; 99284; G0378